=== PATIENT | female | born 1950 | race Caucasian/White ===

== ENCOUNTER 2021-03-15 04:35 | Inpatient (IN) | payer MEDICARE, OTHER ==
[2021-03-15] MEDS ORDERED: Sodium Chloride 0.9% 1,000 ML IV ONE ×2 (04:52→06:01)
--- NOTE | 2021-03-15 05:00 | EDM.PDOC ---
<Gavin Michele - Last Filed: 03/15/21 04:53> ED HPI GENERAL MEDICAL PROBLEM - General Stated Complaint: STOMACH PAIN Time Seen by Provider: 03/15/21 04:45 Source of Information: Reports: Patient History Limitations: Reports: No Limitations - History of Present Illness INITIAL COMMENTS - FREE TEXT/NARRATIVE: This 70 yo female patient reports to the ED with a 24 hour history of increased abdominal pain. The patient reports her current pain is a 10/10 and describes it as pressure. The patient reports she had a similar episode the day after . During that episode, the patient went to the [facility] and was advised that she had a gastroenteritis after running lab tests. The patient was advised that if she had any additional similar episodes she should come to the ED to have a CT scan. The patient reports she had a [employer] on Thursday and started having symptoms after that time. The patient reports she thinks she may have eaten too much during the libertarian. The patient initially reported she had not eaten anything after her symptoms started, but reports she did have bread an peanut butter for dinner last night. The patient reports a history of 2 C- sections, her gall bladder removed and a hysterectomy. The patient reports she did not attempt to get into the clinic with her current symptoms due to watching her grandchild. The patient reports she has taken Motrin with some symptom relief. Onset Date: 03/13/21 Duration: Constant, Getting Worse Location: Reports: Abdomen Quality: Reports: Pressure Severity: Moderate Improves with: Reports: None Worsens with: Reports: None Context: Reports: Other Associated Symptoms: Reports: Nausea/Vomiting Treatments [employer]: Reports: NSAIDS - Related Data Allergies Allergy/AdvReac Type Severity Reaction Status Date / Time No Known Allergies Allergy Verified 10/09/13 03:43 Home Meds: Home Meds Aspirin [Alberto Chewable] 81 mg PO DAILY 10/09/13 [History] Calcium Carbonate [Calcium] 500 mg PO DAILY 10/09/13 [History] Metoprolol/Hydrochlorothiazide [Metoprolol-HCTZ 50-25 MG] 1 tab PO DAILY 10/09/13 [History] Simvastatin 40 mg PO BEDTIME 10/09/13 [History] ED ROS GENERAL - Review of Systems Review Of Systems: Comprehensive ROS is negative, except as noted in HPI. ED EXAM, GI/ABD - Physical Exam Exam: See Below Exam Limited By: No Limitations General Appearance: Alert, WD/WN, Moderate Distress, Obese Eyes: Bilateral: Normal Appearance, EOMI Ears: Normal External Exam, Normal Canal, Hearing Grossly Normal, Normal TMs Nose: Normal Inspection, Normal Mucosa, No Blood Throat/Mouth: Normal Inspection, Normal Lips, Normal Teeth, Normal Gums, Normal Oropharynx, Normal Voice, No Airway Compromise Head: Atraumatic, Normocephalic Neck: Normal Inspection, Supple, Non-Tender, Full Range of Motion Respiratory/Chest: No Respiratory Distress, Lungs Clear, Normal Breath Sounds, No Accessory Muscle Use, Chest Non-Tender Cardiovascular: Normal Peripheral Pulses, Regular Rate, Rhythm, No Edema, No Gallop, No JVD, No Murmur, No Rub GI/Abdominal Exam: Distended, Tender (diffuse tenderness) (Female) Exam: Deferred Rectal (Female) Exam: Deferred Back Exam: Normal Inspection, Full Range of Motion, NT Extremities: Normal Inspection, Normal Range of Motion, Non-Tender, Normal Capillary Refill, No Pedal Edema Neurological: Alert, Oriented, CN II-XII Intact, Normal Cognition, Normal Reflexes, No Motor/Sensory Deficits, Abnormal Gait (due to abdominal pain) Psychiatric: Flat Affect Skin Exam: Warm, Dry, Intact, Normal Color, No Rash Lymphatic: No Adenopathy Departure - Departure Disposition: Admitted As Inpatient 68 Clinical Impression: Elevated bilirubin, Elevated LFTs, Cholangitis Pancreatitis Qualifiers: Chronicity: acute Pancreatitis type: other Acute pancreatitis complication: unspecified Qualified Code(s): K85.80 - Other acute pancreatitis without necrosis or infection - Discharge Information <James Hackett - Last Filed: 03/15/21 11:22> Course - Vital Signs Last Recorded V/S: Last Vital Signs Temp 96.5 F L 03/15/21 04:56 Pulse 85 03/15/21 04:56 Resp 20 03/15/21 04:56 BP 144/83 H 03/15/21 04:56 Pulse Ox 95 03/15/21 04:56 - Orders/Labs/Meds Orders: Active Orders 24 hr Category Date Time Status CORONAVIRUS COVID-19 SARAH [MOLEC] Stat Lab 03/15/21 11:13 Ordered CULTURE BLOOD [BC] Stat Lab 03/15/21 04:55 Received UA RFX CALEB AND CULT IF INDIC [URIN] Urgent Lab 03/15/21 04:46 Ordered LORazepam [Ativan] Med 03/15/21 09:14 Active 1 mg IVPUSH Q4H PRN Medication Orders Lorazepam (Lorazepam 2 Mg/Ml Sdv) 1 mg IVPUSH Q4H PRN PRN Reason: Anxiety Last Admin: 03/15/21 09:26 Dose: 1 mg Documented by: VANE Labs: Laboratory Tests 03/15/21 03/15/21 03/15/21 Range/Units 04:55 04:55 04:55 WBC 8.0 (5.0-10.0) 10^3/uL RBC 4.67 (4.2-5.4) 10^6/uL Hgb 14.2 (12.0-16.0) g/dL Hct 41.5 (37.0-47.0) % MCV 88.9 (80-100) fL MCH 30.4 (27.0-34.0) pg MCHC 34.2 (33.0-35.0) g/dL Plt Count 290 (150-450) 10^3/uL Neut % (Auto) 78.3 H (42.2-75.2) % Lymph % (Auto) 10.2 L (20.5-50.1) % [place] % (Auto) 11.2 H (2-8) % Eos % (Auto) 0.1 L (1.0-3.0) % Baso % (Auto) 0.2 (0.0-1.0) % Sodium 140 (136-145) mmol/L Potassium 3.1 L (3.5-5.1) mmol/L Chloride 101 (98-107) mmol/L Carbon Dioxide 24 (21-32) mmol/L Anion Gap 18.1 H (7-13) mEq/L BUN 17 (7-18) mg/dL Creatinine 0.96 (0.55-1.02) mg/dL Est Cr Clr Drug Dosing 44.36 mL/min Estimated GFR (MDRD) 58 BUN/Creatinine Ratio 17.7 (No establ ref range) Glucose 154 H (70-99) mg/dL Lactic Acid 1.3 (0.4-2.0) mmol/L Calcium 9.4 (8.5-10.1) mg/dL Total Bilirubin 6.3 H (0.2-1.0) mg/dL AST 237 H (15-37) U/L ALT 450 H (14-59) U/L Alkaline Phosphatase 437 H (46-116) U/L Total Protein 7.3 (6.4-8.2) g/dL Albumin 3.6 (3.4-5.0) g/dL Globulin 3.7 Albumin/Globulin Ratio 0.97 Amylase 3054 H (25-115) U/L Lipase 63594 H (73-393) U/L Meds: Medications Generic Name Dose Route Start Last Admin Trade Name Freq PRN Reason Stop Dose Admin Lorazepam 1 mg 03/15/21 09:14 03/15/21 09:26 Lorazepam 2 Mg/Ml Sdv IVPUSH 1 mg Q4H PRN Administration Anxiety Discontinued Medications Generic Name Dose Route Start Last Admin Trade Name Freq PRN Reason Stop Dose Admin Hydromorphone HCl 0.5 mg 03/15/21 05:45 03/15/21 06:04 Hydromorphone 0.5 Mg/0.5 Ml Syringe IVPUSH 03/15/21 05:46 0.5 mg ONETIME ONE Administration Sodium Chloride 1,000 mls @ 125 mls/hr 03/15/21 04:52 03/15/21 05:55 Normal Saline IV 03/15/21 12:51 999 mls/hr .BOLUS ONE Infusion Sodium Chloride 1,000 mls @ 999 mls/hr 03/15/21 06:01 03/15/21 05:55 Normal Saline IV 03/15/21 06:55 Not Given .BOLUS ONE Iopamidol 100 ml 03/15/21 06:51 03/15/21 06:32 Iopamidol 612 Mg/Ml 100 Ml Bottle IVPUSH 03/15/21 06:52 100 ml ONETIME ONE Administration Ondansetron HCl 4 mg 03/15/21 05:49 03/15/21 06:04 Ondansetron 4 Mg/2 Ml Sdv IVPUSH 03/15/21 05:50 4 mg ONETIME ONE Administration - Re-Assessments/Exams Free Text/Narrative Re-Assessment/Exam: 03/15/21 09:10 I assumed care of this patient from Gavin POOLE at shift change. All major hospitals were contacted and no beds are currently available. The pt has an acute elevation in LFT, bilirubin, lipase and amylase. There was apparently a remnant of her gallbladder left over from her cholecystectomy back in 1997 which no has stones in it. The CT showed a dilatation of the common bile duct. I am concerned the pt may have an obstruction and require GI intervention. I have ordered an MRCP to determine if there is an acute obstruction. 03/15/21 11:18 The results of the abd MRI demonstrate pancreatitis. No obstructing calculi in the extrahepatic ducts are visualized. The MRI results are suspicious for acute cholangitis. I spoke with Dr. Bright who agreed to admit the pt for inpatient treatment of her condition. Departure - Departure Time of Disposition: 11:21 (Dr. Bright) Condition: Fair - Discharge Information *PRESCRIPTION DRUG MONITORING PROGRAM REVIEWED*: Not Applicable *COPY OF PRESCRIPTION DRUG MONITORING REPORT IN PATIENT SEN: Not Applicable Sepsis Event Note (ED) - Focused Exam Vital Signs: Vital Signs Temp Pulse Resp BP Pulse Ox 03/15/21 04:56 96.5 F L 85 20 144/83 H 95 - My Orders Last 24 Hours: My Active Orders 03/15/21 09:14 LORazepam [Ativan] 1 mg IVPUSH Q4H PRN 03/15/21 11:13 CORONAVIRUS COVID-19 SARAH [MOLEC] Stat - Assessment/Plan Last 24 Hours: My Active Orders 03/15/21 09:14 LORazepam [Ativan] 1 mg IVPUSH Q4H PRN 03/15/21 11:13 CORONAVIRUS COVID-19 SARAH [MOLEC] Stat
[2021-03-15 05:38] LABS: ANION GAP 18.1 mEq/L (7-13)
[2021-03-15] MEDS ORDERED: HYDROmorphone 0.5 MG/0.5 ML Syringe IVPUSH ONE (05:45)
[2021-03-15] MEDS ORDERED: Ondansetron 4 MG/2 ML SDV IVPUSH ONE (05:49)
[2021-03-15] MEDS ORDERED: Iopamidol 612 MG/ML 100 ML Bottle IVPUSH ONE (06:51)
--- NOTE | 2021-03-15 08:20 | CT ---
PROCEDURE INFORMATION: Exam: CT Abdomen And Pelvis With Contrast Exam date and time: 03/15/2021 5:57 AM Age: 70 years old Clinical indication: Abdominal pain; Generalized; Prior surgery; Surgery date: 6+ months; Surgery type: Gallbladder removed, 2x , hysterectomy TECHNIQUE: Imaging protocol: Computed tomography of the abdomen and pelvis with contrast. Radiation optimization: All CT scans at this facility use at least one of these dose optimization techniques: automated exposure control; mA and/or kV adjustment per patient size (includes targeted exams where dose is matched to clinical indication); or iterative reconstruction. Contrast material: ISOVUE 300; Contrast volume: 100 ml; Contrast route: INTRAVENOUS (IV); COMPARISON: CT ABDOMEN 06/25/2006 9:09 AM FINDINGS: Lungs: The visualized lung bases demonstrate mild dependent atelectasis. Liver: The liver is newly fatty in density. Gallbladder and bile ducts: There has again been cholecystectomy. There appears to be a small remnant of the gallbladder containing stones. There is mild haziness and stranding of the fat adjacent to this, extending inferiorly along the descending duodenum and adjacent to the pancreatic head. The common bile duct is again dilated, often seen after cholecystectomy. Pancreas: The pancreas itself appears unremarkable. Spleen: Normal. No splenomegaly. Adrenal glands: Normal. No mass. Kidneys and ureters: The right kidney appears unremarkable. The left kidney now contains a simple 1.6 cm cyst in its upper pole. It appears otherwise unremarkable. Stomach and bowel: The unopacified small bowel is not significantly distended to suggest obstruction. There is again mild sigmoid colonic diverticulosis without evidence for diverticulitis. Appendix: The appendix appears normal. Intraperitoneal space: No free air or significant free fluid. Vasculature: Unremarkable. No abdominal aortic aneurysm. Lymph nodes: Unremarkable. No enlarged lymph nodes. Urinary bladder: Unremarkable. Reproductive: There has been hysterectomy. No gross adnexal abnormality is apparent, but ultrasound would be more appropriate in this regard. Bones/joints: Degenerative changes involve the spine and hips. Soft tissues: Unremarkable. IMPRESSION: 1. Inflammatory changes in the right upper quadrant, including adjacent to the pancreatic head, along the descending duodenum and in the tsar hepatis near the remnant of the gallbladder, which contains stones. Findings could relate to pancreatitis, duodenitis or potentially cholecystitis of the gallbladder remnant. 2. Fatty liver, new since 06/25/2006. 3. Mild sigmoid colonic diverticulosis without evidence for diverticulitis. COMMENTS: Consistent with the [employer]'s Incidental Findings Committee white paper (J Am Zaire Radiol 2018): Any incidental renal lesion less than 1 cm or classified as too small to characterize, or any incidental cystic renal lesion characterized as simple-appearing, is likely benign. No follow-up imaging is recommended for these lesions per consensus recommendations based on imaging criteria.
[2021-03-15] MEDS ORDERED: LORazepam 2 MG/ML SDV IVPUSH PRN (09:14)
--- NOTE | 2021-03-15 11:02 | MR ---
PROCEDURE INFORMATION: Exam: MR Abdomen Without Contrast Exam date and time: 03/15/2021 9:12 AM Age: 70 years old Clinical indication: Abdominal pain; Additional info: Abd pn TECHNIQUE: Imaging protocol: MR of the abdomen without contrast. COMPARISON: CT Abdomen Pelvis w Cont 03/15/2021 5:57 AM FINDINGS: Liver: Mild periportal T2 signal hyperintensity. Hepatic small benign anterior superior subcapsular cyst measuring 5.0 mm. Gallbladder and bile ducts: The extrahepatic bile ducts are dilated, measuring 11.6 mm, with mild mural thickening (series foreign 1, image 18), correlating with previous mural enhancement. No ductal calculus. Small cystic duct remanent containing calculi redemonstrated (series 501, image 22), mild surrounding edema. Pancreas: Indurated peripancreatic fat planes consistent with the previously demonstrated. No pancreatic ductal dilatation. No pancreatic or intrapancreatic fluid collection. Spleen: Unremarkable. No splenomegaly. Adrenal glands: Unremarkable. No mass. Kidneys and ureters: Left renal 17.0 mm benign cyst. Stomach and bowel: Periduodenal edema involving the 2nd and proximal 3rd portions of the duodenum, felt to be secondary. Appendix: The vermiform appendix is normal. Retroperitoneal space: Mild right perirenal adipose edema, felt to be secondary. Intraperitoneal space: Minimal perihepatic peritoneal fluid. Arteries: No abdominal aortic aneurysm. Bones/joints: Unremarkable. Soft tissues: Unremarkable. IMPRESSION: 1. Pancreatitis. 2. Small cystic duct remanent containing calculi redemonstrated, mild surrounding edema. Remnant cholecystitis is not excluded. Clinical correlation is recommended. 3. Dilated extrahepatic duct with wall thickening, possible cholangitis. Clinical correlation is recommended. 4. Mild periportal T2 signal hyperintensity. Differential diagnosis includes cholangitis, acute hepatitis, hypoproteinemia, elevated central venous pressure, bacteremia, recent crystalloid administration and other etiologies. Clinical correlation is recommended. 5. Hepatic small benign cyst. No follow-up imaging is recommended. 6. Left renal benign cyst. No follow-up imaging is recommended. COMMENTS: Consistent with the [employer]'s Incidental Findings Committee white paper (J Am Zaire Radiol 2018): Any incidental renal lesion less than 1 cm or classified as too small to characterize, or any incidental cystic renal lesion characterized as simple-appearing, is likely benign. No follow-up imaging is recommended for these lesions per consensus recommendations based on imaging criteria.
[2021-03-15] MEDS ORDERED: 50% Dextrose in Water 50 ML Syringe IVPUSH PRN (13:12)
[2021-03-15] MEDS ORDERED: oxyCODONE 5 MG Tab PO PRN (13:14)
[2021-03-15] MEDS ORDERED: Ondansetron 4 MG Tab.DIS PO PRN (13:14)
[2021-03-15] MEDS ORDERED: Morphine 2 MG/ML SYRINGE IVPUSH PRN (13:14)
[2021-03-15] MEDS ORDERED: Ondansetron 4 MG/2 ML SDV IVPUSH PRN (13:14)
--- NOTE | 2021-03-15 13:23 | PCM.HP ---
H&P History of Present Illness - General Date of Service: 03/15/21 Admit Problem/Dx: Admission Diagnosis/Problem Admission Diagnosis/Problem Pancreatitis Source of Information: Patient, Provider - History of Present Illness Initial Comments - Free Text/Narative: 70 yo with h/o htn, dm, dyslipidemia has a h/o cholecystectomy in 1997 developed abdominal pain on/off since Thanksgiving worse after meal at [employer], partially relieved with motrin presented with 10/10 pain, descibing mid abdomen, pressure, associated nausea, took stool softener then had 3 loose BM recently no fever, no cp, no sob Abdomen Pain Score (Numeric/FACES): 10 - Related Data Allergies/Adverse Reactions: Allergies Allergy/AdvReac Type Severity Reaction Status Date / Time metformin AdvReac Headache Verified 03/15/21 12:46 Home Medications: Home Meds Aspirin [Alberto Chewable] 81 mg PO DAILY 10/09/13 [History] Calcium Carbonate [Calcium] 500 mg PO DAILY 10/09/13 [History] Metoprolol/Hydrochlorothiazide [Metoprolol-HCTZ 50-25 MG] 40 mg PO DAILY 10/09/13 [History] Simvastatin 40 mg PO BEDTIME 10/09/13 [History] Past Medical History Cardiovascular History: Reports: High Cholesterol, Hypertension Respiratory History: Reports: None Gastrointestinal History: Reports: GERD, Pancreatitis 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: Musculoskeletal History: Reports: Arthritis, Osteoarthritis, Other (See Below) Other Musculoskeletal History: 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 Neurological History: Reports: None Psychiatric History: Reports: Anxiety, Depression Endocrine/Metabolic History: Reports: None Hematologic History: Reports: Anemia, Blood Transfusion(s), Iron Deficiency Immunologic History: Reports: None Oncologic (Cancer) History: Reports: None Dermatologic History: Reports: None - Infectious Disease History Infectious Disease History: Reports: Chicken Pox - Past Surgical History Cardiovascular Surgical History: Reports: None GI Surgical History: Reports: Cholecystectomy Musculoskeletal Surgical History: Reports: Other (See Below) Other Musculoskeletal Surgeries/Procedures:: Right Great toe surgery ( made it shorter Social & Family History - Family History Family Medical History: No Pertinent Family History - Tobacco Use Tobacco Use Status *Q: Never Tobacco User Second Hand Smoke Exposure: No - Caffeine Use Caffeine Use: Reports: None - Recreational Drug Use Recreational Drug Use: No H&P Review of Systems - Review of Systems: Review Of Systems: See Below General: Reports: Malaise, Weakness. Denies: Fever, Chills Pulmonary: Denies: Shortness of Breath Cardiovascular: Denies: Chest Pain, Edema Gastrointestinal: Reports: Abdominal Pain, Distension. Denies: Diarrhea Genitourinary: Denies: Dysuria Neurological: Denies: Confusion, Dizziness Exam - Exam Exam: See Below - Vital Signs Vital Signs: Last Vital Signs Temp 96.5 F L 03/15/21 04:56 Pulse 85 03/15/21 04:56 Resp 20 03/15/21 04:56 BP 144/83 H 03/15/21 04:56 Pulse Ox 95 03/15/21 04:56 Weight: 200 lb 1.6 oz - Exam General: Alert, Oriented Neck: Supple Lungs: Clear to Auscultation, Normal Respiratory Effort Cardiovascular: Regular Rate, Regular Rhythm GI/Abdominal Exam: Normal Bowel Sounds, No Distention, Tender. No: Rigid, Rebound Extremities: No Pedal Edema - Patient Data Lab Results Last 24 hrs: Laboratory Results - last 24 hr 03/15/21 03/15/21 03/15/21 Range/Units 04:55 04:55 04:55 WBC 8.0 (5.0-10.0) 10^3/uL RBC 4.67 (4.2-5.4) 10^6/uL Hgb 14.2 (12.0-16.0) g/dL Hct 41.5 (37.0-47.0) % MCV 88.9 (80-100) fL MCH 30.4 (27.0-34.0) pg MCHC 34.2 (33.0-35.0) g/dL Plt Count 290 (150-450) 10^3/uL Neut % (Auto) 78.3 H (42.2-75.2) % Lymph % (Auto) 10.2 L (20.5-50.1) % [place] % (Auto) 11.2 H (2-8) % Eos % (Auto) 0.1 L (1.0-3.0) % Baso % (Auto) 0.2 (0.0-1.0) % Sodium 140 (136-145) mmol/L Potassium 3.1 L (3.5-5.1) mmol/L Chloride 101 (98-107) mmol/L Carbon Dioxide 24 (21-32) mmol/L Anion Gap 18.1 H (7-13) mEq/L BUN 17 (7-18) mg/dL Creatinine 0.96 (0.55-1.02) mg/dL Est Cr Clr Drug Dosing 44.36 mL/min Estimated GFR (MDRD) 58 BUN/Creatinine Ratio 17.7 (No establ ref range) Glucose 154 H (70-99) mg/dL Lactic Acid 1.3 (0.4-2.0) mmol/L Calcium 9.4 (8.5-10.1) mg/dL Total Bilirubin 6.3 H (0.2-1.0) mg/dL AST 237 H (15-37) U/L ALT 450 H (14-59) U/L Alkaline Phosphatase 437 H (46-116) U/L Total Protein 7.3 (6.4-8.2) g/dL Albumin 3.6 (3.4-5.0) g/dL Globulin 3.7 Albumin/Globulin Ratio 0.97 Amylase 3054 H (25-115) U/L Lipase 88077 H (73-393) U/L SARS CoV-2 RNA Rapid SARAH (NEGATIVE) 03/15/21 Range/Units 11:26 WBC (5.0-10.0) 10^3/uL RBC (4.2-5.4) 10^6/uL Hgb (12.0-16.0) g/dL Hct (37.0-47.0) % MCV (80-100) fL MCH (27.0-34.0) pg MCHC (33.0-35.0) g/dL Plt Count (150-450) 10^3/uL Neut % (Auto) (42.2-75.2) % Lymph % (Auto) (20.5-50.1) % [place] % (Auto) (2-8) % Eos % (Auto) (1.0-3.0) % Baso % (Auto) (0.0-1.0) % Sodium (136-145) mmol/L Potassium (3.5-5.1) mmol/L Chloride (98-107) mmol/L Carbon Dioxide (21-32) mmol/L Anion Gap (7-13) mEq/L BUN (7-18) mg/dL Creatinine (0.55-1.02) mg/dL Est Cr Clr Drug Dosing mL/min Estimated GFR (MDRD) BUN/Creatinine Ratio (No establ ref range) Glucose (70-99) mg/dL Lactic Acid (0.4-2.0) mmol/L Calcium (8.5-10.1) mg/dL Total Bilirubin (0.2-1.0) mg/dL AST (15-37) U/L ALT (14-59) U/L Alkaline Phosphatase (46-116) U/L Total Protein (6.4-8.2) g/dL Albumin (3.4-5.0) g/dL Globulin Albumin/Globulin Ratio Amylase (25-115) U/L Lipase (73-393) U/L SARS CoV-2 RNA Rapid SARAH Negative (NEGATIVE) Result Diagrams: 03/15/21 04:55 03/15/21 04:55 - Problem List (1) Acute cholecystitis due to biliary calculus SNOMED Code(s): 99288354755357 ICD Code: K80.00 - CALCULUS OF GALLBLADDER W ACUTE CHOLECYST W/O OBSTRUCTION Status: Acute Current Visit: Yes (2) Acute cholecystitis with acute cholangitis SNOMED Code(s): 778733988 ICD Code: K81.0 - ACUTE CHOLECYSTITIS; K83.09 - OTHER CHOLANGITIS Status: Acute Current Visit: Yes (3) Hypokalemia SNOMED Code(s): 85061007 ICD Code: E87.6 - HYPOKALEMIA Status: Acute Current Visit: Yes (4) Diabetes SNOMED Code(s): 15396581 ICD Code: E11.9 - TYPE 2 DIABETES MELLITUS WITHOUT COMPLICATIONS Status: Acute Current Visit: Yes (5) HTN (hypertension) SNOMED Code(s): 20887601 ICD Code: I10 - ESSENTIAL (PRIMARY) HYPERTENSION Status: Acute Current Visit: Yes (6) Dyslipidemia SNOMED Code(s): 183506101 ICD Code: E78.5 - HYPERLIPIDEMIA, UNSPECIFIED Status: Acute Current Visit: Yes (7) Cholangitis SNOMED Code(s): 54216387 ICD Code: K83.09 - OTHER CHOLANGITIS Status: Acute Current Visit: No (8) Pancreatitis SNOMED Code(s): 64689876 ICD Code: K85.90 - ACUTE PANCREATITIS WITHOUT NECROSIS OR INFECTION, UNSP Status: Acute Current Visit: No Qualifiers: Chronicity: acute Pancreatitis type: other Acute pancreatitis compl ication: unspecified Qualified Code(s): K85.80 - Other acute pancreatitis without necrosis or infection Problem List Initiated/Reviewed/Updated: Yes Orders Last 24hrs: Active Orders 24 hr Category Date Time Status Admission Diagnosis [ADT] Stat ADT 03/15/21 11:23 Ordered Admission Status [Patient Status] [ADT] Routine ADT 03/15/21 11:23 Active Blood Glucose Check, Bedside [RC] WITHMEALSANDBED Care 03/15/21 13:13 Ordered Oxygen Therapy [RC] PRN Care 03/15/21 13:15 Ordered Up With Assistance [RC] ASDIRECTED Care 03/15/21 13:14 Ordered VTE/DVT Education [RC] PER UNIT ROUTINE Care 03/15/21 13:15 Ordered Vital Signs [RC] Q4H Care 03/15/21 13:15 Ordered Nothing per Oral Now Diet [DIET] Diet 03/15/21 Dinner Ordered BASIC METABOLIC PANEL,BMP [CHEM] AM Lab 03/16/21 05:11 Ordered BASIC METABOLIC PANEL,BMP [CHEM] AM Lab 03/17/21 05:11 Ordered BASIC METABOLIC PANEL,BMP [CHEM] AM Lab 03/18/21 05:11 Ordered BASIC METABOLIC PANEL,BMP [CHEM] AM Lab 03/19/21 05:11 Ordered BASIC METABOLIC PANEL,BMP [CHEM] AM Lab 03/20/21 05:11 Ordered BASIC METABOLIC PANEL,BMP [CHEM] AM Lab 03/21/21 05:11 Ordered CBC WITH AUTO DIFF [HEME] AM Lab 03/16/21 05:11 Ordered CBC WITH AUTO DIFF [HEME] AM Lab 03/17/21 05:11 Ordered CBC WITH AUTO DIFF [HEME] AM Lab 03/18/21 05:11 Ordered CBC WITH AUTO DIFF [HEME] AM Lab 03/19/21 05:11 Ordered CBC WITH AUTO DIFF [HEME] AM Lab 03/20/21 05:11 Ordered CBC WITH AUTO DIFF [HEME] AM Lab 03/21/21 05:11 Ordered CULTURE BLOOD [BC] Stat Lab 03/15/21 04:55 Received CULTURE BLOOD [BC] Stat Lab 03/15/21 13:09 Ordered CULTURE BLOOD [BC] Stat Lab 03/15/21 13:09 Ordered HEPATIC FUNCTION PANEL,HFP [CHEM] AM Lab 03/16/21 05:11 Ordered HEPATIC FUNCTION PANEL,HFP [CHEM] AM Lab 03/17/21 05:11 Ordered HEPATIC FUNCTION PANEL,HFP [CHEM] AM Lab 03/18/21 05:11 Ordered HEPATIC FUNCTION PANEL,HFP [CHEM] AM Lab 03/19/21 05:11 Ordered HEPATIC FUNCTION PANEL,HFP [CHEM] AM Lab 03/20/21 05:11 Ordered LIPASE [CHEM] AM Lab 03/16/21 05:11 Ordered LIPASE [CHEM] AM Lab 03/17/21 05:11 Ordered LIPASE [CHEM] AM Lab 03/18/21 05:11 Ordered LIPASE [CHEM] AM Lab 03/19/21 05:11 Ordered LIPASE [CHEM] AM Lab 03/20/21 05:11 Ordered Acetaminophen [TylenoL] Med 03/15/21 13:14 Ordered 650 mg PO Q4H PRN Aspirin Med 03/16/21 09:00 Ordered 81 mg PO DAILY Dextrose 5%-Normal Saline with KCl 20 mEq @ 125 mL/Hr ( Med 03/15/21 13:30 Ordered 1000 mL) Dextrose 5%-0.9% NaCl with KCl [D5 NS with 20 mEq KCl] 1,000 ml IV ASDIRECTED Dextrose 50% in Water Med 03/15/21 13:12 Ordered 25 ml IVPUSH ASDIRECTED PRN Heparin Sodium Med 03/15/21 14:00 Ordered 5,000 units SUBCUT Q8HR Insulin Lispro [HumaLOG] Med 03/15/21 18:00 Ordered See Protocol SUBCUT WITHMEALSANDBED LORazepam [Ativan] Med 03/15/21 09:14 Active 1 mg IVPUSH Q4H PRN Metoprolol/Hydrochlorothiazide [Metoprolol-HCTZ 50-25 Med 03/16/21 09:00 Ord ered MG] 40 mg PO DAILY Morphine Med 03/15/21 13:14 Ordered 1 mg IVPUSH Q2H PRN Ondansetron [Zofran ODT] Med 03/15/21 13:14 Ordered 4 mg PO Q6H PRN Ondansetron [Zofran] Med 03/15/21 13:14 Ordered 4 mg IVPUSH Q6H PRN Piperacillin/Tazobactam [Zosyn] 3.375 gm Med 03/15/21 13:15 Ordered Sodium Chloride 0.9% [Normal Saline AdvBag] 100 ml IV Q6H Potassium Chloride [KCL in Water 20 MEQ/100 ML] 20 meq Med 03/15/21 13:15 Ordered Premix Bag 1 bag IV Q2H Temazepam [Restoril] Med 03/15/21 13:14 Ordered 15 mg PO BEDTIME PRN oxyCODONE Med 03/15/21 13:14 Ordered 5 mg PO Q4H PRN Blood Culture x2 Reflex Set [OM.PC] Stat Oth 03/15/21 13:09 Ordered Resuscitation Status Routine Resus Stat 03/15/21 13:14 Ordered Medication Orders Acetaminophen (Acetaminophen 325 Mg Tab) 650 mg PO Q4H PRN PRN Reason: Pain (Mild 1-3)/fever Aspirin (Aspirin 81 Mg Tab.Chew) 81 mg PO DAILY COUNT INCLUDES THE [facility] Dextrose/Water (50% Dextrose In Water 50 Ml Syringe) 25 ml IVPUSH ASDIRECTED PRN PRN Reason: Hypoglycemia BS<70 Heparin Sodium (Porcine) (Heparin Sodium 5,000 Units/Ml Vial) 5,000 units SUBCUT Q8HR COUNT INCLUDES THE [facility] Potassium Chloride 20 meq/ (Premix) 100 mls @ 50 mls/hr IV Q2H KRISTIAN Stop: 03/15/21 21:14 Piperacillin Sod/Tazobactam (Sod 3.375 gm/ Sodium Chloride) 100 mls @ 200 mls/hr IV Q6H COUNT INCLUDES THE [facility] Potassium Chloride/Dextrose/Sod Cl (D5 Ns With 20 Meq Kcl) 1,000 mls @ 125 mls/hr IV ASDIRECTED COUNT INCLUDES THE [facility] Insulin Human Lispro (Insulin Lispro 100 Units/Ml 3 Ml Vial) 0 unit SUBCUT WITHMEALSANDBED KRISTIAN; Protocol Lorazepam (Lorazepam 2 Mg/Ml Sdv) 1 mg IVPUSH Q4H PRN PRN Reason: Anxiety Last Admin: 03/15/21 09:26 Dose: 1 mg Documented by: VANE Morphine Sulfate (Morphine 2 Mg/Ml Syringe) 1 mg IVPUSH Q2H PRN PRN Reason: Pain (severe 7-10) Non-Formulary Medication (Metoprolol/Hydrochlorothiazide [Metoprolol-Hctz 50-25 Mg]) 40 mg PO DAILY COUNT INCLUDES THE [facility] Ondansetron HCl (Ondansetron 4 Mg Tab.Dis) 4 mg PO Q6H PRN PRN Reason: nausea, able to take PO Ondansetron HCl (Ondansetron 4 Mg/2 Ml Sdv) 4 mg IVPUSH Q6H PRN PRN Reason: Nausea/Vomiting Oxycodone HCl (Oxycodone 5 Mg Tab) 5 mg PO Q4H PRN PRN Reason: Pain (moderate 4-6) Temazepam (Temazepam 15 Mg Cap) 15 mg PO BEDTIME PRN PRN Reason: Sleep Assessment/Plan Comment:: presented with on/off abd pain for days h/o cholecystectomy Acute pancreatitis Likely due to cholelithiasis Keep npo Pepcid for gi protection/comfort IVF with iv electrolyte replacement Check lipase in AM Cholelithiasis, remnant cholecystitis On MRCP no apparent common bile duct stone but has dilated CBD with wall thickening No accepting facility available with GI/surgery capability Will follow LFT Remnant acute cholecystitis, possible cholangitis Obtain blood culture Cover with zosyn Hypokalemia Will replace K with iv kcl Reza lackey in AM DM Check BS qac+ HS Supplemental insulin and hypoglycemia protocol as needed Htn Treat with metoprolol, hctz Dyslipidemia Hold statin while npo Pain control with Tylenol for mild pain, oxycodone for moderate pain, IV morphine for severe pain Dvt prophylaxis with sq heparin
[2021-03-15] MEDS ORDERED: Potassium Chloride 20 MEQ in Premix Bag 1 BAG IV SCH ×2 (14:00→21:15)
[2021-03-15] MEDS: Heparin Sodium 5,000 Units/ML Vial SUBCUT SCH ×2 (14:58→21:51)
[2021-03-15] MEDS: Piperacillin/Tazobactam 3.375 GM in Sodium Chloride 0.9% 100 ML IV SCH ×2 (14:58→19:55)
[2021-03-15] MEDS: Potassium Chloride 20 MEQ, Lidocaine 1% 1 ML in Premix Bag 1 BAG IV SCH ×2 (15:55→23:47)
[2021-03-15] MEDS: Dextrose 5%-0.9% NaCl with KCl 1,000 ML IV SCH (15:55)
[2021-03-15] MEDS: Insulin Lispro 100 Units/ML 3 ML Vial SUBCUT SCH ×2 (19:19→21:50)
[2021-03-15] MEDS ORDERED: Potassium Chloride 20 MEQ, Lidocaine 1% 1 ML in Premix Bag 1 BAG IV SCH (21:00)
[2021-03-15] MEDS ORDERED: Temazepam 15 MG Cap PO PRN (21:00)
[2021-03-16] MEDS: Potassium Chloride 20 MEQ, Lidocaine 1% 1 ML in Premix Bag 1 BAG IV SCH ×3 (00:29→01:57)
[2021-03-16] MEDS: Piperacillin/Tazobactam 3.375 GM in Sodium Chloride 0.9% 100 ML IV SCH ×4 (00:37→17:55)
[2021-03-16] MEDS: Dextrose 5%-0.9% NaCl with KCl 1,000 ML IV SCH ×3 (01:11→17:59)
[2021-03-16] MEDS: Acetaminophen 325 MG Tab PO PRN ×2 (04:29→19:55)
[2021-03-16] MEDS: Heparin Sodium 5,000 Units/ML Vial SUBCUT SCH ×3 (06:03→21:53)
[2021-03-16 06:33] LABS: ANION GAP 12.7 mEq/L (7-13); CHLORIDE,CL 109 mmol/L (98-107); SODIUM,NA 142 mmol/L (136-145)
[2021-03-16] MEDS ORDERED: HYDROCHLOROTHIAZIDE PO SCH (09:00)
[2021-03-16] MEDS ORDERED: [UNRECOGNIZED DRUG - OTHER] PO SCH (09:00)
[2021-03-16] MEDS ORDERED: METOPROLOL PO SCH (09:00)
[2021-03-16] MEDS: Insulin Lispro 100 Units/ML 3 ML Vial SUBCUT SCH ×4 (09:17→22:09)
[2021-03-16] MEDS: Aspirin 81 MG Tab.Chew PO SCH (09:19)
--- NOTE | 2021-03-16 13:20 | PCM.PN ---
- General Info Date of Service: 03/16/21 Subjective Update: abdominal pain is much better no associated nausea would like to eat no fever no cp, no sob Functional Status: Reports: Pain Controlled - Review of Systems General: Reports: Fever Pulmonary: Denies: Shortness of Breath Cardiovascular: Reports: Edema (puffiness in hands). Denies: Chest Pain Neurological: Denies: Confusion Psychiatric: Denies: Anxiety - Patient Data Vitals - Most Recent: Last Vital Signs Temp 98.8 F 03/16/21 08:09 Pulse 82 03/16/21 08:09 Resp 20 03/16/21 08:09 BP 121/61 03/16/21 08:09 Pulse Ox 93 L 03/16/21 08:09 Weight - Most Recent: 200 lb 1.6 oz Lab Results Last 24 Hours: Laboratory Results - last 24 hr 03/15/21 03/15/21 03/16/21 Range/Units 17:28 21:48 05:40 WBC 6.4 (5.0-10.0) 10^3/uL RBC 3.69 L (4.2-5.4) 10^6/uL Hgb 11.0 L D (12.0-16.0) g/dL Hct 33.3 L (37.0-47.0) % MCV 90.2 (80-100) fL MCH 29.8 (27.0-34.0) pg MCHC 33.0 (33.0-35.0) g/dL Plt Count 234 (150-450) 10^3/uL Neut % (Auto) 63.6 (42.2-75.2) % Lymph % (Auto) 18.1 L (20.5-50.1) % [place] % (Auto) 17.2 H (2-8) % Eos % (Auto) 0.8 L (1.0-3.0) % Baso % (Auto) 0.3 (0.0-1.0) % Sodium (136-145) mmol/L Potassium (3.5-5.1) mmol/L Chloride (98-107) mmol/L Carbon Dioxide (21-32) mmol/L Anion Gap (7-13) mEq/L BUN (7-18) mg/dL Creatinine (0.55-1.02) mg/dL Est Cr Clr Drug Dosing mL/min Estimated GFR (MDRD) Glucose (70-99) mg/dL POC Glucose 119 H 138 H (70-99) mg/dL Calcium (8.5-10.1) mg/dL Total Bilirubin (0.2-1.0) mg/dL Direct Bilirubin (0.0-0.2) mg/dL Indirect Bilirubin AST (15-37) U/L ALT (14-59) U/L Alkaline Phosphatase (46-116) U/L Total Protein (6.4-8.2) g/dL Albumin (3.4-5.0) g/dL Globulin Albumin/Globulin Ratio Lipase (73-393) U/L 03/16/21 03/16/21 03/16/21 Range/Units 05:40 08:06 12:00 WBC (5.0-10.0) 10^3/uL RBC (4.2-5.4) 10^6/uL Hgb (12.0-16.0) g/dL Hct (37.0-47.0) % MCV (80-100) fL MCH (27.0-34.0) pg MCHC (33.0-35.0) g/dL Plt Count (150-450) 10^3/uL Neut % (Auto) (42.2-75.2) % Lymph % (Auto) (20.5-50.1) % [place] % (Auto) (2-8) % Eos % (Auto) (1.0-3.0) % Baso % (Auto) (0.0-1.0) % Sodium 142 (136-145) mmol/L Potassium 3.7 (3.5-5.1) mmol/L Chloride 109 H (98-107) mmol/L Carbon Dioxide 24 (21-32) mmol/L Anion Gap 12.7 (7-13) mEq/L BUN 15 (7-18) mg/dL Creatinine 0.90 (0.55-1.02) mg/dL Est Cr Clr Drug Dosing 47.32 mL/min Estimated GFR (MDRD) > 60 Glucose 131 H (70-99) mg/dL POC Glucose 123 H 136 H (70-99) mg/dL Calcium 8.1 L (8.5-10.1) mg/dL Total Bilirubin 6.1 H (0.2-1.0) mg/dL Direct Bilirubin 5.1 H (0.0-0.2) mg/dL Indirect Bilirubin 1.0 AST 193 H (15-37) U/L ALT 353 H (14-59) U/L Alkaline Phosphatase 341 H (46-116) U/L Total Protein 5.6 L (6.4-8.2) g/dL Albumin 2.6 L (3.4-5.0) g/dL Globulin 3.0 Albumin/Globulin Ratio 0.87 Lipase 1410 H (73-393) U/L [facility] Results Last 24 Hours: Microbiology 03/15/21 04:55 Aerobic Blood Culture - Preliminary Blood NO GROWTH AFTER 1 DAY Anaerobic Blood Culture - Preliminary NO GROWTH AFTER 1 DAY Med Orders - Current: Current Medications Acetaminophen (Acetaminophen 325 Mg Tab) 650 mg PO Q4H PRN PRN Reason: Pain (Mild 1-3)/fever Last Admin: 03/16/21 04:29 Dose: 650 mg Documented by: Aspirin (Aspirin 81 Mg Tab.Chew) 81 mg PO DAILY [facility] Last Admin: 03/16/21 09:19 Dose: 81 mg Documented by: Dextrose/Water (50% Dextrose In Water 50 Ml Syringe) 25 ml IVPUSH ASDIRECTED PRN PRN Reason: Hypoglycemia BS<70 Heparin Sodium (Porcine) (Heparin Sodium 5,000 Units/Ml Vial) 5,000 units SUBCUT Q8HR [facility] Last Admin: 03/16/21 06:03 Dose: 5,000 units Documented by: Piperacillin Sod/Tazobactam (Sod 3.375 gm/ Sodium Chloride) 100 mls @ 200 mls/hr IV Q6HR [facility] Last Admin: 03/16/21 12:41 Dose: 200 mls/hr Documented by: Potassium Chloride/Dextrose/Sod Cl (D5 Ns With 20 Meq Kcl) 1,000 mls @ 125 mls/hr IV ASDIRECTED [facility] Last Admin: 03/16/21 09:18 Dose: 125 mls/hr Documented by: Insulin Human Lispro (Insulin Lispro 100 Units/Ml 3 Ml Vial) 0 unit SUBCUT WITHMEALSANDBED [facility]; Protocol Last Admin: 03/16/21 12:06 Dose: Not Given Documented by: Losartan Potassium (Losartan 25 Mg Tab) 25 mg PO DAILY [facility] Metoprolol Succinate (Metoprolol Succinate 50 Mg Tab.Er) 50 mg PO DAILY [facility] Morphine Sulfate (Morphine 2 Mg/Ml Syringe) 1 mg IVPUSH Q2H PRN PRN Reason: Pain (severe 7-10) Ondansetron HCl (Ondansetron 4 Mg Tab.Dis) 4 mg PO Q6H PRN PRN Reason: nausea, able to take PO Ondansetron HCl (Ondansetron 4 Mg/2 Ml Sdv) 4 mg IVPUSH Q6H PRN PRN Reason: Nausea/Vomiting Oxycodone HCl (Oxycodone 5 Mg Tab) 5 mg PO Q4H PRN PRN Reason: Pain (moderate 4-6) Temazepam (Temazepam 15 Mg Cap) 15 mg PO BEDTIME PRN PRN Reason: Sleep Triamterene/Hydrochlorothiazide (Hydrochlorothiazide/Triamterene 25-37.5 Tab) 1 each PO DAILY [facility] Discontinued Medications Hydromorphone HCl (Hydromorphone 0.5 Mg/0.5 Ml Syringe) 0.5 mg IVPUSH ONETIME ONE Stop: 03/15/21 05:46 Last Admin: 03/15/21 06:04 Dose: 0.5 mg Documented by: Sodium Chloride (Normal Saline) 1,000 mls @ 125 mls/hr IV .BOLUS ONE Stop: 03/15/21 12:51 Last Infusion: 03/15/21 05:55 Dose: 999 mls/hr Documented by: Sodium Chloride (Normal Saline) 1,000 mls @ 999 mls/hr IV .BOLUS ONE Stop: 03/15/21 06:55 Last Admin: 03/15/21 05:55 Dose: Not Given Documented by: Potassium Chloride 20 meq/ (Premix) 100 mls @ 50 mls/hr IV Q2H [facility] Stop: 03/15/21 21:59 Last Admin: 03/16/21 02:26 Dose: Not Given Documented by: Potassium Chloride 20 meq/ (Lidocaine HCl 1 ml/ Premix) 101 mls @ 50 mls/hr IV Q2H [facility] Stop: 03/15/21 22:59 Last Admin: 03/16/21 00:30 Dose: Not Given Documented by: Potassium Chloride 20 meq/ (Lidocaine HCl 1 ml/ Premix) 101 mls @ 25 mls/hr IV Q4H [facility] Stop: 03/16/21 08:59 Last Admin: 03/16/21 00:28 Dose: Not Given Documented by: Potassium Chloride 20 meq/ (Premix) 100 mls @ 25 mls/hr IV Q4H [facility] Stop: 03/16/21 09:14 Last Admin: 03/16/21 00:29 Dose: Not Given Documented by: Potassium Chloride 20 meq/ (Lidocaine HCl 1 ml/ Premix) 101 mls @ 50 mls/hr IV Q2H [facility] Stop: 03/16/21 02:59 Last Admin: 03/16/21 01:57 Dose: 50 mls/hr Documented by: Iopamidol (Iopamidol 612 Mg/Ml 100 Ml Bottle) 100 ml IVPUSH ONETIME ONE Stop: 03/15/21 06:52 Last Admin: 03/15/21 06:32 Dose: 100 ml Documented by: Lorazepam (Lorazepam 2 Mg/Ml Sdv) 1 mg IVPUSH Q4H PRN PRN Reason: Anxiety Last Admin: 03/15/21 09:26 Dose: 1 mg Documented by: Non-Formulary Medication (Metoprolol/Hydrochlorothiazide [Metoprolol-Hctz 50-25 Mg]) 40 mg PO DAILY [facility] Last Admin: 03/16/21 12:05 Dose: Not Given Documented by: Ondansetron HCl (Ondansetron 4 Mg/2 Ml Sdv) 4 mg IVPUSH ONETIME ONE Stop: 03/15/21 05:50 Last Admin: 03/15/21 06:04 Dose: 4 mg Documented by: - Patient Data Lab Results Last 24 hrs: Laboratory Results - last 24 hr 03/15/21 03/15/21 03/16/21 Range/Units 17:28 21:48 05:40 WBC 6.4 (5.0-10.0) 10^3/uL RBC 3.69 L (4.2-5.4) 10^6/uL Hgb 11.0 L D (12.0-16.0) g/dL Hct 33.3 L (37.0-47.0) % MCV 90.2 (80-100) fL MCH 29.8 (27.0-34.0) pg MCHC 33.0 (33.0-35.0) g/dL Plt Count 234 (150-450) 10^3/uL Neut % (Auto) 63.6 (42.2-75.2) % Lymph % (Auto) 18.1 L (20.5-50.1) % [place] % (Auto) 17.2 H (2-8) % Eos % (Auto) 0.8 L (1.0-3.0) % Baso % (Auto) 0.3 (0.0-1.0) % Sodium (136-145) mmol/L Potassium (3.5-5.1) mmol/L Chloride (98-107) mmol/L Carbon Dioxide (21-32) mmol/L Anion Gap (7-13) mEq/L BUN (7-18) mg/dL Creatinine (0.55-1.02) mg/dL Est Cr Clr Drug Dosing mL/min Estimated GFR (MDRD) Glucose (70-99) mg/dL POC Glucose 119 H 138 H (70-99) mg/dL Calcium (8.5-10.1) mg/dL Total Bilirubin (0.2-1.0) mg/dL Direct Bilirubin (0.0-0.2) mg/dL Indirect Bilirubin AST (15-37) U/L ALT (14-59) U/L Alkaline Phosphatase (46-116) U/L Total Protein (6.4-8.2) g/dL Albumin (3.4-5.0) g/dL Globulin Albumin/Globulin Ratio Lipase (73-393) U/L 03/16/21 03/16/21 03/16/21 Range/Units 05:40 08:06 12:00 WBC (5.0-10.0) 10^3/uL RBC (4.2-5.4) 10^6/uL Hgb (12.0-16.0) g/dL Hct (37.0-47.0) % MCV (80-100) fL MCH (27.0-34.0) pg MCHC (33.0-35.0) g/dL Plt Count (150-450) 10^3/uL Neut % (Auto) (42.2-75.2) % Lymph % (Auto) (20.5-50.1) % [place] % (Auto) (2-8) % Eos % (Auto) (1.0-3.0) % Baso % (Auto) (0.0-1.0) % Sodium 142 (136-145) mmol/L Potassium 3.7 (3.5-5.1) mmol/L Chloride 109 H (98-107) mmol/L Carbon Dioxide 24 (21-32) mmol/L Anion Gap 12.7 (7-13) mEq/L BUN 15 (7-18) mg/dL Creatinine 0.90 (0.55-1.02) mg/dL Est Cr Clr Drug Dosing 47.32 mL/min Estimated GFR (MDRD) > 60 Glucose 131 H (70-99) mg/dL POC Glucose 123 H 136 H (70-99) mg/dL Calcium 8.1 L (8.5-10.1) mg/dL Total Bilirubin 6.1 H (0.2-1.0) mg/dL Direct Bilirubin 5.1 H (0.0-0.2) mg/dL Indirect Bilirubin 1.0 AST 193 H (15-37) U/L ALT 353 H (14-59) U/L Alkaline Phosphatase 341 H (46-116) U/L Total Protein 5.6 L (6.4-8.2) g/dL Albumin 2.6 L (3.4-5.0) g/dL Globulin 3.0 Albumin/Globulin Ratio 0.87 Lipase 1410 H (73-393) U/L Result Diagrams: 03/16/21 05:40 03/16/21 05:40 [facility] Results Last 24 hrs: Microbiology 03/15/21 04:55 Aerobic Blood Culture - Preliminary Blood NO GROWTH AFTER 1 DAY Anaerobic Blood Culture - Preliminary NO GROWTH AFTER 1 DAY Sepsis Event Note - Evaluation Sepsis Screening Result: No Definite Risk - Focused Exam Vital Signs: Vital Signs Temp Temp Pulse Resp BP Pulse Ox 03/16/21 08:09 98.8 F 82 20 121/61 93 L 03/16/21 04:59 99.7 F 03/16/21 04:29 101.7 F H 03/16/21 04:00 101.7 F H 87 18 137/77 98 - Problem List & Annotations (1) Acute cholecystitis due to biliary calculus SNOMED Code(s): 10448927160652 Code(s): K80.00 - CALCULUS OF GALLBLADDER W ACUTE CHOLECYST W/O OBSTRUCTION Status: Acute Current Visit: Yes (2) Acute cholecystitis with acute cholangitis SNOMED Code(s): 582282789 Code(s): K81.0 - ACUTE CHOLECYSTITIS; K83.09 - OTHER CHOLANGITIS Status: Acute Current Visit: Yes (3) Hypokalemia SNOMED Code(s): 26171256 Code(s): E87.6 - HYPOKALEMIA Status: Acute Current Visit: Yes (4) Diabetes SNOMED Code(s): 96503976 Code(s): E11.9 - TYPE 2 DIABETES MELLITUS WITHOUT COMPLICATIONS Status: Acute Current Visit: Yes (5) HTN (hypertension) SNOMED Code(s): 62701859 Code(s): I10 - ESSENTIAL (PRIMARY) HYPERTENSION Status: Acute Current Visit: Yes (6) Dyslipidemia SNOMED Code(s): 978739986 Code(s): E78.5 - HYPERLIPIDEMIA, UNSPECIFIED Status: Acute Current Visit: Yes (7) Cholangitis SNOMED Code(s): 78457224 Code(s): K83.09 - OTHER CHOLANGITIS Status: Acute Current Visit: No (8) Pancreatitis SNOMED Code(s): 87308285 Code(s): K85.90 - ACUTE PANCREATITIS WITHOUT NECROSIS OR INFECTION, UNSP Status: Acute Current Visit: No Qualifiers: Chronicity: acute Pancreatitis type: other Acute pancreatitis complication: unspecified Qualified Code(s): K85.80 - Other acute pancreatitis without necrosis or infection - Problem List Review Problem List Initiated/Reviewed/Updated: Yes - My Orders Last 24 Hours: My Active Orders 03/15/21 13:09 Blood Culture x2 Reflex Set [OM.PC] Stat 03/15/21 13:12 Dextrose 50% in Water 25 ml IVPUSH ASDIRECTED PRN 03/15/21 13:13 Blood Glucose Check, Bedside [RC] WITHMEALSANDBED 03/15/21 13:14 Up With Assistance [RC] ASDIRECTED Acetaminophen [TylenoL] 650 mg PO Q4H PRN Morphine 1 mg IVPUSH Q2H PRN Ondansetron [Zofran ODT] 4 mg PO Q6H PRN Ondansetron [Zofran] 4 mg IVPUSH Q6H PRN oxyCODONE 5 mg PO Q4H PRN Resuscitation Status Routine 03/15/21 13:15 Oxygen Therapy [RC] .PRN VTE/DVT Education [RC] PER UNIT ROUTINE Vital Signs [RC] 00,04,08,12,16,20 03/15/21 13:30 Dextrose 5%-0.9% NaCl with KCl [D5 NS with 20 mEq KCl] 1,000 ml IV ASDIRECTED 03/15/21 13:34 CULTURE BLOOD [BC] Stat 03/15/21 14:00 Heparin Sodium 5,000 units SUBCUT Q8HR Piperacillin/Tazobactam [Zosyn] 3.375 gm Sodium Chloride 0.9% [Normal Saline AdvBag] 100 ml IV Q6HR 03/15/21 18:00 Insulin Lispro [HumaLOG] See Protocol SUBCUT WITHMEALSANDBED 03/15/21 21:00 Temazepam [Restoril] 15 mg PO BEDTIME PRN 03/16/21 09:00 Aspirin 81 mg PO DAILY 03/16/21 Lunch Clear Liquid Diet [DIET] 03/17/21 05:11 BASIC METABOLIC PANEL,BMP [CHEM] AM CBC WITH AUTO DIFF [HEME] AM HEPATIC FUNCTION PANEL,HFP [CHEM] AM LIPASE [CHEM] AM 03/17/21 09:00 HCTZ/Triamterene [Maxzide 25-37.5 MG] 1 each PO DAILY Losartan [Cozaar] 25 mg PO DAILY Metoprolol Succinate [Toprol XL] 50 mg PO DAILY 03/18/21 05:11 BASIC METABOLIC PANEL,BMP [CHEM] AM CBC WITH AUTO DIFF [HEME] AM HEPATIC FUNCTION PANEL,HFP [CHEM] AM LIPASE [CHEM] AM 03/19/21 05:11 BASIC METABOLIC PANEL,BMP [CHEM] AM CBC WITH AUTO DIFF [HEME] AM HEPATIC FUNCTION PANEL,HFP [CHEM] AM LIPASE [CHEM] AM 03/20/21 05:11 BASIC METABOLIC PANEL,BMP [CHEM] AM CBC WITH AUTO DIFF [HEME] AM HEPATIC FUNCTION PANEL,HFP [CHEM] AM LIPASE [CHEM] AM 03/21/21 05:11 BASIC METABOLIC PANEL,BMP [CHEM] AM CBC WITH AUTO DIFF [HEME] AM - Plan Plan:: presented with on/off abd pain for days h/o cholecystectomy Acute pancreatitis Likely due to cholelithiasis lipase is better abd pain is better will advance to clear liquid diet Pepcid for gi protection/comfort IVF with iv electrolyte replacement - decrease rate with swelling and advancement of diet Check lipase in AM Cholelithiasis, remnant cholecystitis On MRCP no apparent common bile duct stone but has dilated CBD with wall thickening No accepting facility available with GI/surgery capability Will follow LFT Remnant acute cholecystitis, possible cholangitis blood culture: pending Cover with zosychu Hypokalemia replaced Ashvin lackey in AM DM Check BS qac+ HS Supplemental insulin and hypoglycemia protocol as needed Htn Treat with metoprolol, hctz, tmt, cozaar Dyslipidemia Hold statin while npo Pain control with Tylenol for mild pain, oxycodone for moderate pain, IV morphine for severe pain Dvt prophylaxis with sq heparin
[2021-03-16] MEDS: Famotidine 20 MG Tab PO SCH (14:17)
[2021-03-17] MEDS: Piperacillin/Tazobactam 3.375 GM in Sodium Chloride 0.9% 100 ML IV SCH ×4 (00:17→17:51)
[2021-03-17 06:35] LABS: ANION GAP 13.5 mEq/L (7-13); CHLORIDE,CL 108 mmol/L (98-107); SODIUM,NA 141 mmol/L (136-145)
[2021-03-17] MEDS: Heparin Sodium 5,000 Units/ML Vial SUBCUT SCH ×3 (08:33→21:54)
[2021-03-17] MEDS: Famotidine 20 MG Tab PO SCH (09:45)
[2021-03-17] MEDS: Aspirin 81 MG Tab.Chew PO SCH (09:45)
[2021-03-17] MEDS: Losartan 25 MG Tab PO SCH (09:45)
[2021-03-17] MEDS: Hydrochlorothiazide/Triamterene 25-37.5 Tab PO SCH (09:46)
[2021-03-17] MEDS: Metoprolol Succinate 50 MG Tab.ER PO SCH (09:46)
[2021-03-17] MEDS: Insulin Lispro 100 Units/ML 3 ML Vial SUBCUT SCH ×4 (10:33→21:49)
--- NOTE | 2021-03-17 13:23 | PCM.PN ---
- General Info Date of Service: 03/17/21 Admission Dx/Problem (Free Text): Admission Diagnosis/Problem Admission Diagnosis/Problem Pancreatitis Functional Status: Reports: Pain Controlled, Tolerating Diet (clear liquid) - Review of Systems General: Denies: Fever Pulmonary: Denies: Shortness of Breath Cardiovascular: Denies: Edema Gastrointestinal: Reports: Abdominal Pain (minimal, much improved) Genitourinary: Denies: Dysuria Psychiatric: Denies: Confusion, Anxiety - Patient Data Vitals - Most Recent: Last Vital Signs Temp 98.7 F 03/17/21 08:21 Pulse 81 03/17/21 09:46 Resp 20 03/17/21 08:21 BP 151/71 H 03/17/21 09:46 Pulse Ox 96 03/17/21 08:21 Weight - Most Recent: 200 lb 1.6 oz I&O - Last 24 Hours: Intake & Output 03/16/21 03/17/21 03/17/21 22:59 06:59 14:59 Intake Total 100 650 Balance 100 650 Lab Results Last 24 Hours: Laboratory Results - last 24 hr 03/16/21 03/16/21 03/17/21 Range/Units 16:25 21:03 05:30 WBC 6.2 (5.0-10.0) 10^3/uL RBC 3.59 L (4.2-5.4) 10^6/uL Hgb 10.8 L (12.0-16.0) g/dL Hct 33.0 L (37.0-47.0) % MCV 91.9 (80-100) fL MCH 30.1 (27.0-34.0) pg MCHC 32.7 L (33.0-35.0) g/dL Plt Count 214 (150-450) 10^3/uL Neut % (Auto) 62.4 (42.2-75.2) % Lymph % (Auto) 19.9 L (20.5-50.1) % [place] % (Auto) 13.2 H (2-8) % Eos % (Auto) 4.2 H (1.0-3.0) % Baso % (Auto) 0.3 (0.0-1.0) % Sodium (136-145) mmol/L Potassium (3.5-5.1) mmol/L Chloride (98-107) mmol/L Carbon Dioxide (21-32) mmol/L Anion Gap (7-13) mEq/L BUN (7-18) mg/dL Creatinine (0.55-1.02) mg/dL Est Cr Clr Drug Dosing mL/min Estimated GFR (MDRD) Glucose (70-99) mg/dL POC Glucose 127 H 114 H (70-99) mg/dL Calcium (8.5-10.1) mg/dL Total Bilirubin (0.2-1.0) mg/dL Direct Bilirubin (0.0-0.2) mg/dL Indirect Bilirubin AST (15-37) U/L ALT (14-59) U/L Alkaline Phosphatase (46-116) U/L Total Protein (6.4-8.2) g/dL Albumin (3.4-5.0) g/dL Globulin Albumin/Globulin Ratio Lipase (73-393) U/L 03/17/21 03/17/21 03/17/21 Range/Units 05:30 08:01 12:11 WBC (5.0-10.0) 10^3/uL RBC (4.2-5.4) 10^6/uL Hgb (12.0-16.0) g/dL Hct (37.0-47.0) % MCV (80-100) fL MCH (27.0-34.0) pg MCHC (33.0-35.0) g/dL Plt Count (150-450) 10^3/uL Neut % (Auto) (42.2-75.2) % Lymph % (Auto) (20.5-50.1) % [place] % (Auto) (2-8) % Eos % (Auto) (1.0-3.0) % Baso % (Auto) (0.0-1.0) % Sodium 141 (136-145) mmol/L Potassium 3.5 (3.5-5.1) mmol/L Chloride 108 H (98-107) mmol/L Carbon Dioxide 23 (21-32) mmol/L Anion Gap 13.5 H (7-13) mEq/L BUN 14 (7-18) mg/dL Creatinine 0.89 (0.55-1.02) mg/dL Est Cr Clr Drug Dosing 47.85 mL/min Estimated GFR (MDRD) > 60 Glucose 115 H (70-99) mg/dL POC Glucose 105 H 112 H (70-99) mg/dL Calcium 8.2 L (8.5-10.1) mg/dL Total Bilirubin 5.3 H (0.2-1.0) mg/dL Direct Bilirubin 4.4 H (0.0-0.2) mg/dL Indirect Bilirubin 0.9 AST 127 H (15-37) U/L ALT 298 H (14-59) U/L Alkaline Phosphatase 323 H (46-116) U/L Total Protein 5.8 L (6.4-8.2) g/dL Albumin 2.5 L (3.4-5.0) g/dL Globulin 3.3 Albumin/Globulin Ratio 0.76 Lipase 368 (73-393) U/L [place] Results Last 24 Hours: Microbiology 03/15/21 04:55 Aerobic Blood Culture - Preliminary Blood NO GROWTH AFTER 2 DAYS Anaerobic Blood Culture - Preliminary NO GROWTH AFTER 2 DAYS 03/15/21 13:34 Aerobic Blood Culture - Preliminary Blood - Arm, Right NO GROWTH AFTER 1 DAY Anaerobic Blood Culture - Preliminary NO GROWTH AFTER 1 DAY Med Orders - Current: Current Medications Acetaminophen (Acetaminophen 325 Mg Tab) 650 mg PO Q4H PRN PRN Reason: Pain (Mild 1-3)/fever Last Admin: 03/16/21 19:55 Dose: 650 mg Documented by: Aspirin (Aspirin 81 Mg Tab.Chew) 81 mg PO DAILY [facility] Last Admin: 03/17/21 09:45 Dose: 81 mg Documented by: Dextrose/Water (50% Dextrose In Water 50 Ml Syringe) 25 ml IVPUSH ASDIRECTED PRN PRN Reason: Hypoglycemia BS<70 Famotidine (Famotidine 20 Mg Tab) 20 mg PO DAILY [facility] Last Admin: 03/17/21 09:45 Dose: 20 mg Documented by: Heparin Sodium (Porcine) (Heparin Sodium 5,000 Units/Ml Vial) 5,000 units SUBCUT Q8HR [facility] Last Admin: 03/17/21 08:33 Dose: Not Given Documented by: Piperacillin Sod/Tazobactam (Sod 3.375 gm/ Sodium Chloride) 100 mls @ 200 mls/hr IV Q6HR [facility] Last Admin: 03/17/21 12:40 Dose: 200 mls/hr Documented by: Potassium Chloride/Dextrose/Sod Cl (D5 Ns With 20 Meq Kcl) 1,000 mls @ 50 mls/hr IV ASDIRECTED [facility] Last Infusion: 03/16/21 18:00 Dose: 50 mls/hr Documented by: Insulin Human Lispro (Insulin Lispro 100 Units/Ml 3 Ml Vial) 0 unit SUBCUT WITHMEALSANDBED [facility]; Protocol Last Admin: 03/17/21 12:41 Dose: Not Given Documented by: Losartan Potassium (Losartan 25 Mg Tab) 25 mg PO DAILY [facility] Last Admin: 03/17/21 09:45 Dose: 25 mg Documented by: Metoprolol Succinate (Metoprolol Succinate 50 Mg Tab.Er) 50 mg PO DAILY [facility] Last Admin: 03/17/21 09:46 Dose: 50 mg Documented by: Morphine Sulfate (Morphine 2 Mg/Ml Syringe) 1 mg IVPUSH Q2H PRN PRN Reason: Pain (severe 7-10) Ondansetron HCl (Ondansetron 4 Mg Tab.Dis) 4 mg PO Q6H PRN PRN Reason: nausea, able to take PO Ondansetron HCl (Ondansetron 4 Mg/2 Ml Sdv) 4 mg IVPUSH Q6H PRN PRN Reason: Nausea/Vomiting Oxycodone HCl (Oxycodone 5 Mg Tab) 5 mg PO Q4H PRN PRN Reason: Pain (moderate 4-6) Temazepam (Temazepam 15 Mg Cap) 15 mg PO BEDTIME PRN PRN Reason: Sleep Triamterene/Hydrochlorothiazide (Hydrochlorothiazide/Triamterene 25-37.5 Tab) 1 each PO DAILY [facility] Last Admin: 03/17/21 09:46 Dose: 1 each Documented by: Discontinued Medications Hydromorphone HCl (Hydromorphone 0.5 Mg/0.5 Ml Syringe) 0.5 mg IVPUSH ONETIME ONE Stop: 03/15/21 05:46 Last Admin: 03/15/21 06:04 Dose: 0.5 mg Documented by: Sodium Chloride (Normal Saline) 1,000 mls @ 125 mls/hr IV .BOLUS ONE Stop: 03/15/21 12:51 Last Infusion: 03/15/21 05:55 Dose: 999 mls/hr Documented by: Sodium Chloride (Normal Saline) 1,000 mls @ 999 mls/hr IV .BOLUS ONE Stop: 03/15/21 06:55 Last Admin: 03/15/21 05:55 Dose: Not Given Documented by: Potassium Chloride 20 meq/ (Premix) 100 mls @ 50 mls/hr IV Q2H [facility] Stop: 03/15/21 21:59 Last Admin: 03/16/21 02:26 Dose: Not Given Documented by: Potassium Chloride 20 meq/ (Lidocaine HCl 1 ml/ Premix) 101 mls @ 50 mls/hr IV Q2H [facility] Stop: 03/15/21 22:59 Last Admin: 03/16/21 00:30 Dose: Not Given Documented by: Potassium Chloride 20 meq/ (Lidocaine HCl 1 ml/ Premix) 101 mls @ 25 mls/hr IV Q4H [facility] Stop: 03/16/21 08:59 Last Admin: 03/16/21 00:28 Dose: Not Given Documented by: Potassium Chloride 20 meq/ (Premix) 100 mls @ 25 mls/hr IV Q4H [facility] Stop: 03/16/21 09:14 Last Admin: 03/16/21 00:29 Dose: Not Given Documented by: Potassium Chloride 20 meq/ (Lidocaine HCl 1 ml/ Premix) 101 mls @ 50 mls/hr IV Q2H [facility] Stop: 03/16/21 02:59 Last Admin: 03/16/21 01:57 Dose: 50 mls/hr Documented by: Iopamidol (Iopamidol 612 Mg/Ml 100 Ml Bottle) 100 ml IVPUSH ONETIME ONE Stop: 03/15/21 06:52 Last Admin: 03/15/21 06:32 Dose: 100 ml Documented by: Lorazepam (Lorazepam 2 Mg/Ml Sdv) 1 mg IVPUSH Q4H PRN PRN Reason: Anxiety Last Admin: 03/15/21 09:26 Dose: 1 mg Documented by: Non-Formulary Medication (Metoprolol/Hydrochlorothiazide [Metoprolol-Hctz 50-25 Mg]) 40 mg PO DAILY [facility] Last Admin: 03/16/21 12:05 Dose: Not Given Documented by: Ondansetron HCl (Ondansetron 4 Mg/2 Ml Sdv) 4 mg IVPUSH ONETIME ONE Stop: 03/15/21 05:50 Last Admin: 03/15/21 06:04 Dose: 4 mg Documented by: - Exam General: Alert, Oriented Neck: Supple Lungs: Clear to Auscultation, Normal Respiratory Effort Cardiovascular: Regular Rate, Regular Rhythm GI/Abdominal Exam: Normal Bowel Sounds, Soft, Non-Tender, Other (obese) Extremities: No Pedal Edema Skin: Warm Neurological: No New Focal Deficit Psy/Mental Status: Alert, Normal Affect, Normal Mood - Patient Data Lab Results Last 24 hrs: Laboratory Results - last 24 hr 03/16/21 03/16/21 03/17/21 Range/Units 16:25 21:03 05:30 WBC 6.2 (5.0-10.0) 10^3/uL RBC 3.59 L (4.2-5.4) 10^6/uL Hgb 10.8 L (12.0-16.0) g/dL Hct 33.0 L (37.0-47.0) % MCV 91.9 (80-100) fL MCH 30.1 (27.0-34.0) pg MCHC 32.7 L (33.0-35.0) g/dL Plt Count 214 (150-450) 10^3/uL Neut % (Auto) 62.4 (42.2-75.2) % Lymph % (Auto) 19.9 L (20.5-50.1) % [place] % (Auto) 13.2 H (2-8) % Eos % (Auto) 4.2 H (1.0-3.0) % Baso % (Auto) 0.3 (0.0-1.0) % Sodium (136-145) mmol/L Potassium (3.5-5.1) mmol/L Chloride (98-107) mmol/L Carbon Dioxide (21-32) mmol/L Anion Gap (7-13) mEq/L BUN (7-18) mg/dL Creatinine (0.55-1.02) mg/dL Est Cr Clr Drug Dosing mL/min Estimated GFR (MDRD) Glucose (70-99) mg/dL POC Glucose 127 H 114 H (70-99) mg/dL Calcium (8.5-10.1) mg/dL Total Bilirubin (0.2-1.0) mg/dL Direct Bilirubin (0.0-0.2) mg/dL Indirect Bilirubin AST (15-37) U/L ALT (14-59) U/L Alkaline Phosphatase (46-116) U/L Total Protein (6.4-8.2) g/dL Albumin (3.4-5.0) g/dL Globulin Albumin/Globulin Ratio Lipase (73-393) U/L 03/17/21 03/17/21 03/17/21 Range/Units 05:30 08:01 12:11 WBC (5.0-10.0) 10^3/uL RBC (4.2-5.4) 10^6/uL Hgb (12.0-16.0) g/dL Hct (37.0-47.0) % MCV (80-100) fL MCH (27.0-34.0) pg MCHC (33.0-35.0) g/dL Plt Count (150-450) 10^3/uL Neut % (Auto) (42.2-75.2) % Lymph % (Auto) (20.5-50.1) % [place] % (Auto) (2-8) % Eos % (Auto) (1.0-3.0) % Baso % (Auto) (0.0-1.0) % Sodium 141 (136-145) mmol/L Potassium 3.5 (3.5-5.1) mmol/L Chloride 108 H (98-107) mmol/L Carbon Dioxide 23 (21-32) mmol/L Anion Gap 13.5 H (7-13) mEq/L BUN 14 (7-18) mg/dL Creatinine 0.89 (0.55-1.02) mg/dL Est Cr Clr Drug Dosing 47.85 mL/min Estimated GFR (MDRD) > 60 Glucose 115 H (70-99) mg/dL POC Glucose 105 H 112 H (70-99) mg/dL Calcium 8.2 L (8.5-10.1) mg/dL Total Bilirubin 5.3 H (0.2-1.0) mg/dL Direct Bilirubin 4.4 H (0.0-0.2) mg/dL Indirect Bilirubin 0.9 AST 127 H (15-37) U/L ALT 298 H (14-59) U/L Alkaline Phosphatase 323 H (46-116) U/L Total Protein 5.8 L (6.4-8.2) g/dL Albumin 2.5 L (3.4-5.0) g/dL Globulin 3.3 Albumin/Globulin Ratio 0.76 Lipase 368 (73-393) U/L Result Diagrams: 03/17/21 05:30 03/17/21 05:30 [place] Results Last 24 hrs: Microbiology 03/15/21 04:55 Aerobic Blood Culture - Preliminary Blood NO GROWTH AFTER 2 DAYS Anaerobic Blood Culture - Preliminary NO GROWTH AFTER 2 DAYS 03/15/21 13:34 Aerobic Blood Culture - Preliminary Blood - Arm, Right NO GROWTH AFTER 1 DAY Anaerobic Blood Culture - Preliminary NO GROWTH AFTER 1 DAY Sepsis Event Note - Evaluation Sepsis Screening Result: No Definite Risk - Focused Exam Vital Signs: Vital Signs Temp Pulse Pulse Pulse Resp BP BP 03/17/21 09:46 81 151/71 H 03/17/21 09:45 151/71 H 03/17/21 08:21 98.7 F 81 20 151/71 H 03/17/21 04:00 98.3 F 70 70 16 BP Pulse Ox 03/17/21 09:46 03/17/21 09:45 03/17/21 08:21 96 03/17/21 04:00 136/79 95 - Problem List & Annotations (1) Acute cholecystitis due to biliary calculus SNOMED Code(s): 16637789959481 Code(s): K80.00 - CALCULUS OF GALLBLADDER W ACUTE CHOLECYST W/O OBSTRUCTION Status: Acute Current Visit: Yes (2) Acute cholecystitis with acute cholangitis SNOMED Code(s): 945325892 Code(s): K81.0 - ACUTE CHOLECYSTITIS; K83.09 - OTHER CHOLANGITIS Status: Acute Current Visit: Yes (3) Hypokalemia SNOMED Code(s): 76735871 Code(s): E87.6 - HYPOKALEMIA Status: Acute Current Visit: Yes (4) Diabetes SNOMED Code(s): 69381173 Code(s): E11.9 - TYPE 2 DIABETES MELLITUS WITHOUT COMPLICATIONS Status: Acute Current Visit: Yes (5) HTN (hypertension) SNOMED Code(s): 31991788 Code(s): I10 - ESSENTIAL (PRIMARY) HYPERTENSION Status: Acute Current Visit: Yes (6) Dyslipidemia SNOMED Code(s): 179118239 Code(s): E78.5 - HYPERLIPIDEMIA, UNSPECIFIED Status: Acute Current Visit: Yes (7) Cholangitis SNOMED Code(s): 77138805 Code(s): K83.09 - OTHER CHOLANGITIS Status: Acute Current Visit: No (8) Pancreatitis SNOMED Code(s): 69911232 Code(s): K85.90 - ACUTE PANCREATITIS WITHOUT NECROSIS OR INFECTION, UNSP Status: Acute Current Visit: No Qualifiers: Chronicity: acute Pancreatitis type: other Acute pancreatitis complication: unspecified Qualified Code(s): K85.80 - Other acute pancreatitis without necrosis or infection - Problem List Review Problem List Initiated/Reviewed/Updated: Yes - My Orders Last 24 Hours: My Active Orders 03/16/21 13:30 Famotidine [Pepcid] 20 mg PO DAILY 03/17/21 09:00 HCTZ/Triamterene [Maxzide 25-37.5 MG] 1 each PO DAILY Losartan [Cozaar] 25 mg PO DAILY Metoprolol Succinate [Toprol XL] 50 mg PO DAILY 03/17/21 Dinner [place] Diet [DIET] 03/18/21 05:11 BASIC METABOLIC PANEL,BMP [CHEM] AM CBC WITH AUTO DIFF [HEME] AM HEPATIC FUNCTION PANEL,HFP [CHEM] AM LIPASE [CHEM] AM 03/19/21 05:11 BASIC METABOLIC PANEL,BMP [CHEM] AM CBC WITH AUTO DIFF [HEME] AM HEPATIC FUNCTION PANEL,HFP [CHEM] AM LIPASE [CHEM] AM 03/20/21 05:11 BASIC METABOLIC PANEL,BMP [CHEM] AM CBC WITH AUTO DIFF [HEME] AM HEPATIC FUNCTION PANEL,HFP [CHEM] AM LIPASE [CHEM] AM 03/21/21 05:11 BASIC METABOLIC PANEL,BMP [CHEM] AM CBC WITH AUTO DIFF [HEME] AM - Plan Plan:: presented with on/off abd pain for days h/o cholecystectomy Acute pancreatitis Likely due to cholelithiasis lipase returned to normal abd pain is better will advance to bland diet Pepcid for gi protection/comfort stop iVF Check lipase in AM Cholelithiasis, remnant cholecystitis On MRCP no apparent common bile duct stone but has dilated CBD with wall thickening LFTs are improving, suggested out pt surgical follow up Will follow LFT Remnant acute cholecystitis, possible cholangitis blood culture: pending - neg for now Cover with zosyn Hypokalemia replaced Rechek elronels in AM DM Check BS qac+ HS Supplemental insulin and hypoglycemia protocol as needed Htn Treat with metoprolol, hctz, tmt, cozaar Dyslipidemia Hold statin for now Pain control with Tylenol for mild pain, oxycodone for moderate pain, IV morphine for severe pain Dvt prophylaxis with sq heparin
[2021-03-18] MEDS: Piperacillin/Tazobactam 3.375 GM in Sodium Chloride 0.9% 100 ML IV SCH ×3 (00:09→11:33)
[2021-03-18] MEDS: Heparin Sodium 5,000 Units/ML Vial SUBCUT SCH (06:08)
[2021-03-18 06:44] LABS: ANION GAP 14.2 mEq/L (7-13); CHLORIDE,CL 105 mmol/L (98-107); SODIUM,NA 140 mmol/L (136-145)
[2021-03-18] MEDS: Insulin Lispro 100 Units/ML 3 ML Vial SUBCUT SCH ×2 (07:57→11:43)
[2021-03-18] MEDS: Losartan 25 MG Tab PO SCH (08:01)
[2021-03-18] MEDS: Famotidine 20 MG Tab PO SCH (08:01)
[2021-03-18] MEDS: Aspirin 81 MG Tab.Chew PO SCH (08:02)
[2021-03-18] MEDS: Hydrochlorothiazide/Triamterene 25-37.5 Tab PO SCH (08:02)
[2021-03-18] MEDS: Metoprolol Succinate 50 MG Tab.ER PO SCH (08:02)
--- NOTE | 2021-03-18 09:58 | PCM.DCSUM1 ---
Discharge Summary - Hospital Course Free Text/Narrative:: presented with on/off abd pain for days h/o cholecystectomy Acute pancreatitis Likely due to cholelithiasis seen in remnant of gallbladder lipase returned to normal abd pain is better tolerating bland diet Cholelithiasis, remnant cholecystitis On MRCP no apparent common bile duct stone but has dilated CBD with wall thickening LFTs are improving, t bili from 6.3 to 2.6 suggested out pt surgical follow up Will follow LFT as out pt Remnant acute cholecystitis, possible cholangitis blood culture: pending - neg for now treated with zosyn Hypokalemia replaced follow periodically Htn Treat with metoprolol, hctz, tmt, cozaar Dyslipidemia resume statin Diagnosis: Stroke: No - Discharge Data Discharge Date: 03/18/21 Discharge Disposition: Home, Self-Care 01 Condition: Good - Referral to Home Health Primary Care Physician: PCP None - Discharge Diagnosis/Problem(s) (1) Acute cholecystitis due to biliary calculus SNOMED Code(s): 53022415415812 ICD Code: K80.00 - CALCULUS OF GALLBLADDER W ACUTE CHOLECYST W/O OBSTRUCTION Status: Acute Current Visit: Yes (2) Acute cholecystitis with acute cholangitis SNOMED Code(s): 608776059 ICD Code: K81.0 - ACUTE CHOLECYSTITIS; K83.09 - OTHER CHOLANGITIS Status: Acute Current Visit: Yes (3) Hypokalemia SNOMED Code(s): 13751563 ICD Code: E87.6 - HYPOKALEMIA Status: Acute Current Visit: Yes (4) Diabetes SNOMED Code(s): 20569319 ICD Code: E11.9 - TYPE 2 DIABETES MELLITUS WITHOUT COMPLICATIONS Status: Acute Current Visit: Yes (5) HTN (hypertension) SNOMED Code(s): 75437424 ICD Code: I10 - ESSENTIAL (PRIMARY) HYPERTENSION Status: Acute Current Visit: Yes (6) Dyslipidemia SNOMED Code(s): 369433521 ICD Code: E78.5 - HYPERLIPIDEMIA, UNSPECIFIED Status: Acute Current Visit: Yes (7) Cholangitis SNOMED Code(s): 35148811 ICD Code: K83.09 - OTHER CHOLANGITIS Status: Acute Current Visit: No (8) Pancreatitis SNOMED Code(s): 19882144 ICD Code: K85.90 - ACUTE PANCREATITIS WITHOUT NECROSIS OR INFECTION, UNSP Status: Acute Current Visit: No Qualifiers: Chronicity: acute Pancreatitis type: other Acute pancreatitis complication: unspecified Qualified Code(s): K85.80 - Other acute pancreatitis without necrosis or infection - Discharge Plan *PRESCRIPTION DRUG MONITORING PROGRAM REVIEWED*: Not Applicable *COPY OF PRESCRIPTION DRUG MONITORING REPORT IN PATIENT SEN: Not Applicable Home Medications: Home Meds Aspirin [Alberto Chewable Aspirin] 81 mg PO DAILY 10/09/13 [History] Calcium Carbonate [Calcium] 500 mg PO DAILY 10/09/13 [History] Simvastatin 40 mg PO BEDTIME 10/09/13 [History] Losartan Potassium 25 mg PO DAILY 03/15/21 [History] Metoprolol Succinate [Toprol XL 100mg] 50 mg PO DAILY 03/15/21 [History] Ondansetron [Zofran ODT] 4 mg PO DAILY 03/15/21 [History] Triamterene/Hydrochlorothiazid [Triamterene-HCTZ 37.5-25 MG] 1 each PO DAILY 03/15/21 [History] Oxygen Therapy Mode: Room Air Forms: ED Department Discharge Referrals: PCP,None [Primary Care Provider] - (in 2-3 days with LFT) - Discharge Summary/Plan Comment DC Time >30 min.: No Total # of Minutes for Discharge Time: 20 min - General Info Date of Service: 03/18/21 Admission Dx/Problem (Free Text: Admission Diagnosis/Problem Admission Diagnosis/Problem Pancreatitis Subjective Update: abdominal pain is resolved tolerating diet no cp, no sob - Review of Systems General: Reports: Weakness. Denies: Fever Pulmonary: Denies: Shortness of Breath Cardiovascular: Denies: Chest Pain Gastrointestinal: Denies: Abdominal Pain Neurological: Denies: Confusion - Patient Data Vitals - Most Recent: Last Vital Signs Temp 98.7 F 03/18/21 08:23 Pulse 92 03/18/21 08:23 Resp 20 03/18/21 08:23 BP 140/70 03/18/21 08:23 Pulse Ox 94 L 03/18/21 08:23 Weight - Most Recent: 200 lb 1.6 oz I&O - Last 24 hours: Intake & Output 03/17/21 03/18/21 03/18/21 22:59 06:59 14:59 Intake Total 440 370 Output Total 4 Balance 440 366 Lab Results - Last 24 hrs: Laboratory Results - last 24 hr 03/17/21 03/17/21 03/17/21 Range/Units 12:11 17:18 20:47 WBC (5.0-10.0) 10^3/uL RBC (4.2-5.4) 10^6/uL Hgb (12.0-16.0) g/dL Hct (37.0-47.0) % MCV (80-100) fL MCH (27.0-34.0) pg MCHC (33.0-35.0) g/dL Plt Count (150-450) 10^3/uL Neut % (Auto) (42.2-75.2) % Lymph % (Auto) (20.5-50.1) % Dale % (Auto) (2-8) % Eos % (Auto) (1.0-3.0) % Baso % (Auto) (0.0-1.0) % Sodium (136-145) mmol/L Potassium (3.5-5.1) mmol/L Chloride (98-107) mmol/L Carbon Dioxide (21-32) mmol/L Anion Gap (7-13) mEq/L BUN (7-18) mg/dL Creatinine (0.55-1.02) mg/dL Est Cr Clr Drug Dosing mL/min Estimated GFR (MDRD) Glucose (70-99) mg/dL POC Glucose 112 H 86 120 H (70-99) mg/dL Calcium (8.5-10.1) mg/dL Total Bilirubin (0.2-1.0) mg/dL Direct Bilirubin (0.0-0.2) mg/dL Indirect Bilirubin AST (15-37) U/L ALT (14-59) U/L Alkaline Phosphatase (46-116) U/L Total Protein (6.4-8.2) g/dL Albumin (3.4-5.0) g/dL Globulin Albumin/Globulin Ratio Lipase (73-393) U/L 03/18/21 03/18/21 03/18/21 Range/Units 06:00 06:00 07:55 WBC 7.4 (5.0-10.0) 10^3/uL RBC 3.53 L (4.2-5.4) 10^6/uL Hgb 10.8 L (12.0-16.0) g/dL Hct 32.0 L (37.0-47.0) % MCV 90.7 (80-100) fL MCH 30.6 (27.0-34.0) pg MCHC 33.8 (33.0-35.0) g/dL Plt Count 228 (150-450) 10^3/uL Neut % (Auto) 66.5 (42.2-75.2) % Lymph % (Auto) 16.4 L (20.5-50.1) % Dale % (Auto) 11.2 H (2-8) % Eos % (Auto) 5.5 H (1.0-3.0) % Baso % (Auto) 0.4 (0.0-1.0) % Sodium 140 (136-145) mmol/L Potassium 3.2 L (3.5-5.1) mmol/L Chloride 105 (98-107) mmol/L Carbon Dioxide 24 (21-32) mmol/L Anion Gap 14.2 H (7-13) mEq/L BUN 13 (7-18) mg/dL Creatinine 0.90 (0.55-1.02) mg/dL Est Cr Clr Drug Dosing 47.32 mL/min Estimated GFR (MDRD) > 60 Glucose 91 (70-99) mg/dL POC Glucose 86 (70-99) mg/dL Calcium 8.4 L (8.5-10.1) mg/dL Total Bilirubin 2.6 H (0.2-1.0) mg/dL Direct Bilirubin 1.8 H (0.0-0.2) mg/dL Indirect Bilirubin 0.8 AST 77 H (15-37) U/L ALT 239 H (14-59) U/L Alkaline Phosphatase 302 H (46-116) U/L Total Protein 6.0 L (6.4-8.2) g/dL Albumin 2.4 L (3.4-5.0) g/dL Globulin 3.6 Albumin/Globulin Ratio 0.67 Lipase 227 (73-393) U/L CALEB Results - Last 24 hrs: Microbiology 03/15/21 04:55 Aerobic Blood Culture - Preliminary Blood NO GROWTH AFTER 3 DAYS Anaerobic Blood Culture - Preliminary NO GROWTH AFTER 3 DAYS 03/15/21 13:34 Aerobic Blood Culture - Preliminary Blood - Arm, Right NO GROWTH AFTER 2 DAYS Anaerobic Blood Culture - Preliminary NO GROWTH AFTER 2 DAYS Med Orders - Current: Current Medications Acetaminophen (Acetaminophen 325 Mg Tab) 650 mg PO Q4H PRN PRN Reason: Pain (Mild 1-3)/fever Last Admin: 03/16/21 19:55 Dose: 650 mg Documented by: Aspirin (Aspirin 81 Mg Tab.Chew) 81 mg PO DAILY [facility] Last Admin: 03/18/21 08:02 Dose: 81 mg Documented by: Dextrose/Water (50% Dextrose In Water 50 Ml Syringe) 25 ml IVPUSH ASDIRECTED PRN PRN Reason: Hypoglycemia BS<70 Famotidine (Famotidine 20 Mg Tab) 20 mg PO DAILY [facility] Last Admin: 03/18/21 08:01 Dose: 20 mg Documented by: Heparin Sodium (Porcine) (Heparin Sodium 5,000 Units/Ml Vial) 5,000 units SUBCUT Q8HR [facility] Last Admin: 03/18/21 06:08 Dose: 5,000 units Documented by: Piperacillin Sod/Tazobactam (Sod 3.375 gm/ Sodium Chloride) 100 mls @ 200 mls/hr IV Q6HR [facility] Last Infusion: 03/18/21 07:30 Dose: Infused Documented by: Insulin Human Lispro (Insulin Lispro 100 Units/Ml 3 Ml Vial) 0 unit SUBCUT WITHMEALSANDBED [facility]; Protocol Last Admin: 03/18/21 07:57 Dose: Not Given Documented by: Losartan Potassium (Losartan 25 Mg Tab) 25 mg PO DAILY [facility] Last Admin: 03/18/21 08:01 Dose: 25 mg Documented by: Metoprolol Succinate (Metoprolol Succinate 50 Mg Tab.Er) 50 mg PO DAILY [facility] Last Admin: 03/18/21 08:02 Dose: 50 mg Documented by: Morphine Sulfate (Morphine 2 Mg/Ml Syringe) 1 mg IVPUSH Q2H PRN PRN Reason: Pain (severe 7-10) Ondansetron HCl (Ondansetron 4 Mg Tab.Dis) 4 mg PO Q6H PRN PRN Reason: nausea, able to take PO Ondansetron HCl (Ondansetron 4 Mg/2 Ml Sdv) 4 mg IVPUSH Q6H PRN PRN Reason: Nausea/Vomiting Oxycodone HCl (Oxycodone 5 Mg Tab) 5 mg PO Q4H PRN PRN Reason: Pain (moderate 4-6) Potassium Chloride (Potassium Chloride 10 Meq Tab.Er) 40 meq PO ONETIME ONE Stop: 03/18/21 09:50 Temazepam (Temazepam 15 Mg Cap) 15 mg PO BEDTIME PRN PRN Reason: Sleep Triamterene/Hydrochlorothiazide (Hydrochlorothiazide/Triamterene 25-37.5 Tab) 1 each PO DAILY [facility] Last Admin: 03/18/21 08:02 Dose: 1 each Documented by: Discontinued Medications Hydromorphone HCl (Hydromorphone 0.5 Mg/0.5 Ml Syringe) 0.5 mg IVPUSH ONETIME ONE Stop: 03/15/21 05:46 Last Admin: 03/15/21 06:04 Dose: 0.5 mg Documented by: Sodium Chloride (Normal Saline) 1,000 mls @ 125 mls/hr IV .BOLUS ONE Stop: 03/15/21 12:51 Last Infusion: 03/15/21 05:55 Dose: 999 mls/hr Documented by: Sodium Chloride (Normal Saline) 1,000 mls @ 999 mls/hr IV .BOLUS ONE Stop: 03/15/21 06:55 Last Admin: 03/15/21 05:55 Dose: Not Given Documented by: Potassium Chloride 20 meq/ (Premix) 100 mls @ 50 mls/hr IV Q2H [facility] Stop: 03/15/21 21:59 Last Admin: 03/16/21 02:26 Dose: Not Given Documented by: Potassium Chloride/Dextrose/Sod Cl (D5 Ns With 20 Meq Kcl) 1,000 mls @ 50 mls/hr IV ASDIRECTED [facility] Last Infusion: 03/16/21 18:00 Dose: 50 mls/hr Documented by: Potassium Chloride 20 meq/ (Lidocaine HCl 1 ml/ Premix) 101 mls @ 50 mls/hr IV Q2H KRISTIAN Stop: 03/15/21 22:59 Last Admin: 03/16/21 00:30 Dose: Not Given Documented by: Potassium Chloride 20 meq/ (Lidocaine HCl 1 ml/ Premix) 101 mls @ 25 mls/hr IV Q4H [facility] Stop: 03/16/21 08:59 Last Admin: 03/16/21 00:28 Dose: Not Given Documented by: Potassium Chloride 20 meq/ (Premix) 100 mls @ 25 mls/hr IV Q4H [facility] Stop: 03/16/21 09:14 Last Admin: 03/16/21 00:29 Dose: Not Given Documented by: Potassium Chloride 20 meq/ (Lidocaine HCl 1 ml/ Premix) 101 mls @ 50 mls/hr IV Q2H KRISTIAN Stop: 03/16/21 02:59 Last Admin: 03/16/21 01:57 Dose: 50 mls/hr Documented by: Iopamidol (Iopamidol 612 Mg/Ml 100 Ml Bottle) 100 ml IVPUSH ONETIME ONE Stop: 03/15/21 06:52 Last Admin: 03/15/21 06:32 Dose: 100 ml Documented by: Lorazepam (Lorazepam 2 Mg/Ml Sdv) 1 mg IVPUSH Q4H PRN PRN Reason: Anxiety Last Admin: 03/15/21 09:26 Dose: 1 mg Documented by: Non-Formulary Medication (Metoprolol/Hydrochlorothiazide [Metoprolol-Hctz 50-25 Mg]) 40 mg PO DAILY [facility] Last Admin: 03/16/21 12:05 Dose: Not Given Documented by: Ondansetron HCl (Ondansetron 4 Mg/2 Ml Sdv) 4 mg IVPUSH ONETIME ONE Stop: 03/15/21 05:50 Last Admin: 03/15/21 06:04 Dose: 4 mg Documented by: - Exam General: Reports: Alert, Oriented Lungs: Reports: Clear to Auscultation, Normal Respiratory Effort Cardiovascular: Reports: Regular Rate GI/Abdominal Exam: Normal Bowel Sounds, Soft, Non-Tender Extremities: No Pedal Edema Skin: Reports: Warm, Dry Psy/Mental Status: Reports: Alert, Normal Affect
[2021-03-18] MEDS ORDERED: Potassium Chloride 10 MEQ Tab.ER PO ONE (10:00)
== END 2021-03-18 13:40 | disposition home or self-care (01) | DRG 444 ==
LOC: DL.ED 04:35 → DL.MS 12:39
PROVIDERS: ADMIT Internal Medicine; ATTEND Internal Medicine
DX: K85.80 Other acute pancreatitis without necrosis or infection (principal); K80.00 Calculus of gallbladder with acute cholecystitis without obstruction; R17 Unspecified jaundice; R79.89 Other specified abnormal findings of blood chemistry; Z79.82 Long term (current) use of aspirin; Z79.899 Other long term (current) drug therapy; Z90.710 Acquired absence of both cervix and uterus; K85.90 Acute pancreatitis without necrosis or infection, unspecified; K83.09 Other cholangitis; E87.1 Hypo-osmolality and hyponatremia; E87.6 Hypokalemia; I10 Essential (primary) hypertension; E78.5 Hyperlipidemia, unspecified; E11.9 Type 2 diabetes mellitus without complications; K21.9 Gastro-esophageal reflux disease without esophagitis; F41.9 Anxiety disorder, unspecified; F32.A Depression, unspecified; D64.9 Anemia, unspecified; Z90.49 Acquired absence of other specified parts of digestive tract; Z79.4 Long term (current) use of insulin; Z20.822 Contact with and (suspected) exposure to COVID-19
CPT/HCPCS: 36415; 74177; 74181; 80053; 82150; 83605; 83690; 85025; 87040; 96374; 96375; 99285; J1170; J2060; J2405; J7030; Q9967; U0002; 80048; 80076; 82947; A9270-GY; J1644; J1815-GY; J2543; J3480

== ENCOUNTER 2022-01-04 00:25 | Emergency (ER) | payer MEDICARE, OTHER ==
[2022-01-28 14:55] LABS: CHLORIDE,CL 100 mmol/L (98-107); SODIUM,NA 138 mmol/L (136-145)
[2022-01-28 14:56] LABS: ANION GAP 11.2 mEq/L (7-13); ESTIMATED GFR 49 mL/min (>=60)
== END 2022-01-04 04:53 | disposition home or self-care (01) ==
LOC: DL.ED 00:25
DX: U07.1 COVID-19 (principal); I10 Essential (primary) hypertension
CPT/HCPCS: 36415; 71045; 80053; 83880; 84484; 85025; 99285; U0002